=== PATIENT | male | born 2000 | race Caucasian/White ===

== ENCOUNTER → 2023-06-17 | Outpatient (CLI) | payer OTHER ==
[2023-06-17 12:42] LABS: ALBUMIN 4.4 G/DL (3.2-5.2); ALKALINE PHOSPHATASE 54 U/L (46-116); ALT/SGPT 13 U/L (7.0-40); AST/SGOT < 8 U/L (<34); BILIRUBIN,TOTAL 0.6 MG/DL (0.3-1.2); BLOOD UREA NITROGEN 21 MG/DL (9-23); CALCIUM LEVEL 9.7 MG/DL (8.5-10.1); CARBON DIOXIDE LEVEL 31 MMOL/L (20-31); CHLORIDE LEVEL 106 MMOL/L (98-107); CHOLESTEROL LEVEL 111 MG/DL (<200); CREATININE FOR GFR 0.94 MG/DL (0.70-1.30); GLUCOSE, FASTING 90 MG/DL (60-100); HDL CHOLESTEROL 38.2 MG/DL (>40); LDL CHOLESTEROL 57.8 MG/DL (<100); MAGNESIUM LEVEL 2.1 MG/DL (1.8-2.4); NON-HDL-C 72.8 MG/DL; POTASSIUM SERUM 4.5 MMOL/L (3.5-5.1); SODIUM LEVEL 142 MMOL/L (136-145); TRIGLYCERIDES LEVEL 75 MG/DL (<150)
[2023-06-17 12:47] LABS: HEPATITIS B SURFACE ANTIBODY NEGATIVE (POSITIVE)
[2023-06-17 13:12] LABS: HIV 1&2 SCREEN NEGATIVE (NEGATIVE)
[2023-06-17 13:21] LABS: HEPATITIS C VIRUS ABY INDEX 0.04 INDEX (<0.8)
[2023-06-17 15:19] LABS: GC DNA AMPLIFICATION NEGATIVE (NEGATIVE)
[2023-06-17 16:01] LABS: GC DNA AMPLIFICATION NEGATIVE (NEGATIVE)
== END ==
LOC: M PLALAB 10:09
PROVIDERS: ATTEND Student in an Organized Health Care Education/Training Program
DX: Z00.00 Encounter for general adult medical examination without abnormal findings (principal); Z11.3 Encounter for screening for infections with a predominantly sexual mode of transmission; Z13.220 Encounter for screening for lipoid disorders; R00.2 Palpitations; Z11.59 Encounter for screening for other viral diseases